=== PATIENT | female | born 1945 | race Caucasian/White ===

== ENCOUNTER 2017-03-02 02:19 | Inpatient (IN) ==
[2017-02-25 09:50] LABS: MANUAL DIFF NEEDED? NO; URINE MICRO REVIEW NEEDED? NO; URINE SOURCE CLEAN CATCH
[2017-02-25 09:58] LABS: BILIRUBIN URINE NEGATIVE (NEGATIVE); BLOOD URINE NEGATIVE (NEGATIVE); COLOR YELLOW; GLUCOSE URINE NEGATIVE (NEGATIVE); LEUKOCYTES URINE LARGE (NEGATIVE); NITRITE URINE NEGATIVE (NEGATIVE); PROTEIN URINE NEGATIVE (NEGATIVE); SP GRAVITY URINE 1.007; TURBIDITY URINE CLEAR (CLEAR); UROBILINOGEN URINE NORMAL (NORMAL)
[2017-02-25 09:59] LABS: BASO% 0.3 % (0.0-0.8); EOS# 0.07 X1000 (0.0-0.7); HEMATOCRIT 37.2 % (37.0-47.0); HEMOGLOBIN 12.3 g/dL (12.0-16.0); IMM GRAN# 0.02 X1000 (0.0-0.04); IMM GRAN% 0.3 % (0.0-0.5); LYMPH# 2.21 X1000 (1.2-3.4); LYMPH% 31.8 % (20.5-51.1); MCH 29.3 PG (27-31); MCHC 33.1 g/dL (33-37); MCV 88.6 FL (81-99); MONO# 0.43 X1000 (0.11-0.59); MONO% 6.2 % (1.7-9.3); MPV 9.9 FL (7.4-10.4); NEUT% 60.4 % (42.2-75.2); PLT 199 X1000 (130-400)
[2017-02-25 10:00] LABS: UR EPITHELIAL CELLS >10 /HPF (<10); URINE BACTERIA 1+ /HPF; URINE RBC <10 /HPF (<10)
[2017-02-25 10:10] LABS: INR 1.03; PROTIME 10.8 Seconds (9.2-11.7); PTT 28.3 Seconds (22.0-36.0)
[2017-02-25 10:23] LABS: CALCIUM 8.9 mg/dL (8.8-10.2); POTASSIUM 4.5 mmol/L (3.5-5.1)
--- NOTE | 2017-02-25 12:13 | EKG Report ---
Test Performed on : 02/25/2017 12:11:52 PM Test Reason : PAT Blood Pressure : / mmHG Vent. Rate : 070 BPM Atrial Rate : 070 BPM P-R Int : 214 ms QRS Dur : 076 ms QT Int : 412 ms P-R-T Axes : 067 063 078 degrees QTc Int : 444 ms Sinus rhythm. with 1st degree AV block. Otherwise normal ECG When compared with ECG of 16-FEB-2011 18:43, No significant change was found Confirmed by Curt Campa MD ([id number]) on 02/25/2017 4:18:41 PM
[2017-03-02] MEDS ORDERED: PEPCID ONE (09:13)
[2017-03-02] MEDS ORDERED: REGLAN ONE (09:13)
[2017-03-02] MEDS ORDERED: COLACE ONE (09:13)
[2017-03-02] MEDS ORDERED: LYRICA ONE (09:14)
[2017-03-02] MEDS ORDERED: CELEBREX ONE (09:14)
[2017-03-02] MEDS ORDERED: LR 1,000 ML ONE ×2 (09:15→14:19)
[2017-03-02] MEDS ORDERED: VANCOMYCIN 1 GM/NS 1 GM/250 ML IVPB ONE (09:45)
[2017-03-02] MEDS ORDERED: EXPAREL 1.3% ONE (11:08)
[2017-03-02] MEDS ORDERED: NEOSPORIN G.U. IRRIGANT ONE (11:08)
[2017-03-02] MEDS ORDERED: SODIUM CHLORIDE 0.9% ONE (11:08)
[2017-03-02] MEDS ORDERED: TORADOL ONE (11:08)
[2017-03-02] MEDS ORDERED: CYKLOKAPRON 1,000 MG/NS 1,000 MG/100 ML IVPB ONE ×2 (11:08→11:10)
[2017-03-02] MEDS ORDERED: VANCOMYCIN ONE (11:08)
[2017-03-02] MEDS ORDERED: BENADRYL ONE (11:34)
[2017-03-02] MEDS ORDERED: MARCAINE 0.25% PF/EPI 1:200,000 ONE (11:34)
[2017-03-02 12:53] LABS: URINE MICRO REVIEW NEEDED? NO; URINE SOURCE CATH
[2017-03-02] MEDS ORDERED: VERSED ONE (13:51)
[2017-03-02] MEDS ORDERED: DIPRIVAN 1% ONE (13:51)
[2017-03-02] MEDS ORDERED: FENTANYL ONE (13:51)
[2017-03-02 13:56] LABS: UR EPITHELIAL CELLS <10 /HPF (<10); URINE BACTERIA NEGATIVE /HPF; URINE RBC <10 /HPF (<10); URINE WBC <10 /HPF (<10)
--- NOTE | 2017-03-02 13:56 | OPERATIVE NOTE ---
PROCEDURE DATE: 03/02/2017 PREOPERATIVE DIAGNOSIS: Left knee degenerative joint disease. POSTOPERATIVE DIAGNOSIS: Left knee degenerative joint disease. PROCEDURE PERFORMED: Left total knee arthroplasty using [facility] size 4 femoral component, size 4 tibial baseplate, a 12 mm articular insert, and a 32 mm patellar component. SURGEON: Zeus Briones MD. PORTABLE GRINDING MACHINE OPERATOR: Sary Jenkins PA-C ANESTHESIA: Spinal. COMPLICATIONS: None. BLOOD LOSS: Minimal. DRAINS: Hemovac x1. DESCRIPTION OF PROCEDURE: The patient was brought to the operative suite and placed in supine position. After successful administration of spinal anesthesia, a well-padded tourniquet was placed along the left proximal thigh. The left lower extremity was prepped and draped in the usual sterile fashion. The leg was exsanguinated and tourniquet insufflated to 350 torr. A longitudinal incision was made beginning at the superior pole of the patella and extending distally to the tibial tuberosity. It was dissected sharply through the skin and subcutaneous tissue, and full-thickness skin flaps were elevated medially and laterally. A medial arthrotomy was made with a vastus snip. The medial capsule was elevated off the medial tibial plateau. The prepatellar fat pad, ACL, PCL, medial meniscus, and lateral meniscus were excised. A drill was entered in the center of distal femur. An intramedullary guide was placed. A distal cutting block was pinned into place. A distal cut was made with an oscillating saw. The femur was sized to size 4. A size 4 cutting block was pinned into place and the anterior cuts, chamfer cuts, and posterior condylar cuts were made with the oscillating saw. The box cutting block was pinned into place. A box cut was made a box osteotome and oscillating saw. Posterior condyle osteophytes were removed with a curved osteotome and a rongeur. Attention was then directed to the tibia. A drill was entered in the center of the tibia. An intramedullary guide was placed. Alignment was checked with a drop krista, referencing off the anterior cortex of the tibia and the 2nd ray of the foot, taking 4 mm off the low side of the tibia which, in this case, was medially. The articular surface of the tibial plateau was removed with the oscillating saw. The tibia was sized to a size 4. A size 4 guide was used for the fin punch. The tibial trial, femoral trial, and 12 mm articular insert were placed, taken through range of motion, and found to have excellent alignment, balancing, and range of motion. Attention was then directed to the patella and 9 mm off the articular surface of the patella was removed with the oscillating saw. The patella was sized to a size 32. A size 32 guide was used to drill peg holes. The lateral facet was chamfered 30 to 45 degrees. A patellar trial was placed, taken through range of motion, and found to have excellent patella tracking. All trials were then removed. The knee was copiously irrigated dried, being certain all bone debris was removed. The tibial component, femoral component, and patellar component were cemented into place, excess cement being removed with a [place]. Once the cement had hardened, excess cement was again removed with the osteotome. The knee was again copiously irrigated and dried, being certain all bone and cement was removed. The trial articular insert was removed. The knee was copiously infiltrated with Exparel, including the posterior capsule, anterior capsule, medial and lateral collateral ligaments, anterior musculature, and subcutaneous tissue. The definitive 12 mm articular insert was locked into place. The knee was again taken through range of motion and again found to have excellent alignment, balancing, range of motion, and patellar tracking. A drain was placed exiting superior laterally and buried in the lateral gutter. The medial arthrotomy was closed with a V-Loc suture, size 0. The skin edge was approximated with 2-0 Vicryl. The skin was closed with Prineo. A sterile dressing was applied with a cooling blanket. cc: Zeus Briones MD
[2017-03-02 14:09] LABS: BILIRUBIN URINE NEGATIVE (NEGATIVE); BLOOD URINE NEGATIVE (NEGATIVE); COLOR YELLOW; GLUCOSE URINE NEGATIVE (NEGATIVE); SP GRAVITY URINE 1.018; TURBIDITY URINE CLEAR (CLEAR)
[2017-03-02 14:10] LABS: LEUKOCYTES URINE NEGATIVE (NEGATIVE); NITRITE URINE NEGATIVE (NEGATIVE); PROTEIN URINE NEGATIVE (NEGATIVE); UROBILINOGEN URINE NORMAL (NORMAL)
[2017-03-02] MEDS ORDERED: NS 1,000 ML ONE (14:14)
[2017-03-02] MEDS ORDERED: OXY IR PO PRN (14:15)
[2017-03-02] MEDS ORDERED: MORPHINE IV PRN (14:15)
[2017-03-02] MEDS ORDERED: MILK OF MAGNESIA PO PRN (14:15)
[2017-03-02] MEDS ORDERED: AMBIEN PO PRN (14:15)
[2017-03-02] MEDS ORDERED: ZOFRAN IV PRN (14:15)
[2017-03-02] MEDS ORDERED: EPHEDRINE ONE (14:19)
[2017-03-02] MEDS ORDERED: ROBINUL ONE (14:19)
[2017-03-02] MEDS ORDERED: XYLOCAINE-MPF 2% ONE (14:19)
[2017-03-02] MEDS ORDERED: DECADRON ONE (14:19)
[2017-03-02] MEDS ORDERED: OFIRMEV 1000 MG/ISOTONIC SOLN 1,000 MG/100 ML BOTTLE ONE (14:19)
[2017-03-02] MEDS ORDERED: ZOVIRAX PO PRN (15:24)
[2017-03-02] MEDS ORDERED: TUMS PO PRN (15:24)
[2017-03-02] MEDS: TYLENOL PO SCH (15:53)
[2017-03-02] MEDS: ULTRAM PO SCH (15:54)
[2017-03-02] MEDS: NS 1,000 ML IV SCH (20:13)
[2017-03-02] MEDS: LYRICA PO SCH (20:14)
[2017-03-02] MEDS: COLACE PO SCH (20:14)
[2017-03-02] MEDS: COREG PO SCH (20:14)
[2017-03-02] MEDS: XANAX PO SCH ×2 (20:14→22:45)
[2017-03-02] MEDS: CELEBREX PO SCH (20:14)
[2017-03-02] MEDS: ZOCOR PO SCH (20:15)
[2017-03-02] MEDS: KEFZOL 1 GM/D5W 1 GM/50 ML IVPB IV SCH (20:17)
[2017-03-02] MEDS: PERIDEX MT SCH (20:19)
[2017-03-03] MEDS: TYLENOL PO SCH ×5 (03:40→21:48)
[2017-03-03] MEDS: ULTRAM PO SCH ×5 (03:41→21:48)
[2017-03-03] MEDS: NS 1,000 ML IV SCH ×4 (04:42→17:55)
[2017-03-03] MEDS: KEFZOL 1 GM/D5W 1 GM/50 ML IVPB IV SCH (04:42)
[2017-03-03] MEDS: XARELTO PO SCH ×2 (04:43→06:51)
[2017-03-03 06:06] LABS: HEMOGLOBIN 10.4 g/dL (12.0-16.0)
[2017-03-03 06:25] LABS: CALCIUM 8.2 mg/dL (8.8-10.2); POTASSIUM 4.5 mmol/L (3.5-5.1)
--- NOTE | 2017-03-03 08:39 | PROGRESS NOTE ---
DATE: 03/03/2017 SUBJECTIVE: Ms. Graves is a 71-year-old female who is postoperative day 1 from a left total knee arthroplasty. She has no new complaints. OBJECTIVE: General: She is a well developed, well nourished female. She is alert, oriented, and cooperative with the examination. Vital Signs: Stable and she is afebrile. Skin: Her dressing is clean, dry, and intact without sign of infection. Extremities: Her leg is neurovascularly intact. She has intact sensation to light touch. Laboratory Data: Her hemoglobin is 10.4 and her hematocrit is 32. She had 30 mL of drainage from her Hemovac. She walked 125 feet yesterday with physical therapy. ASSESSMENT: Postoperative day 1 from a left total knee arthroplasty. PLAN: We will continue working with her with physical therapy and we plan to send her to rehab later this week. Dictated by TORRI Correa for Zeus Briones MD cc: TORRI Correa MD
[2017-03-03] MEDS: COLACE PO SCH ×2 (08:47→21:48)
[2017-03-03] MEDS: CELEBREX PO SCH ×2 (08:47→21:48)
[2017-03-03] MEDS: XANAX PO SCH ×3 (08:47→21:49)
[2017-03-03] MEDS: FISH OIL CONCENTRATE PO SCH (08:47)
[2017-03-03] MEDS: LYRICA PO SCH ×2 (08:48→21:48)
[2017-03-03] MEDS: PERIDEX MT SCH ×2 (08:48→21:48)
[2017-03-03] MEDS: COREG PO SCH ×2 (08:48→21:48)
[2017-03-03] MEDS: PEPCID PO SCH (08:48)
[2017-03-03] MEDS ORDERED: DECADRON IV ONE (09:00)
[2017-03-03] MEDS: ZOCOR PO SCH (21:48)
[2017-03-04] MEDS: TYLENOL PO SCH ×4 (04:19→21:34)
[2017-03-04] MEDS: ULTRAM PO SCH ×3 (04:19→15:48)
[2017-03-04 06:18] LABS: HEMATOCRIT 26.9 % (37.0-47.0); HEMOGLOBIN 8.8 g/dL (12.0-16.0)
[2017-03-04] MEDS: XARELTO PO SCH (06:19)
--- NOTE | 2017-03-04 07:47 | PROGRESS NOTE ---
DATE: 03/04/2017 SUBJECTIVE: Brina Graves is a 71-year-old female who is postoperative day 2 from a left total knee arthroplasty. She complains of urinary retention this morning but otherwise is doing well. She has been having some somnolence lately and she attributes that to overmedication. OBJECTIVE: She is a well-developed, well-nourished female who is alert, oriented, and cooperative with the exam. Exam of her leg reveals the wound is well approximated. There is some mild bloody drainage. Her leg is neurovascularly intact. She has good range of motion of her knee. Her leg is stable to exam. Her hemoglobin is 8.8, her hematocrit 26.9. She walked 250 feet yesterday. ASSESSMENT: Stable postoperative day 2 visit from a left total knee. PLAN: Continue working on physical therapy. I am going to discontinue her Lyrica. In and out catheter as needed. She will probably go to rehab tomorrow. cc: Zeus Briones MD
[2017-03-04] MEDS: FISH OIL CONCENTRATE PO SCH (08:46)
[2017-03-04] MEDS: COLACE PO SCH ×2 (08:46→21:34)
[2017-03-04] MEDS: PEPCID PO SCH (08:46)
[2017-03-04] MEDS: CELEBREX PO SCH (08:46)
[2017-03-04] MEDS: XANAX PO SCH ×3 (08:46→21:35)
[2017-03-04] MEDS: COREG PO SCH ×2 (08:47→21:36)
[2017-03-04] MEDS: PERIDEX MT SCH ×2 (08:47→21:34)
--- NOTE | 2017-03-04 11:36 | Diag Imaging Result Doc PS360 ---
CHEST-PORTABLE - 03/04/2017 INDICATION: rehab placement TECHNIQUE: COMPARISON: 12/02/2016 FINDINGS: Lung volumes are low with right hemidiaphragm elevation and some adjacent atelectasis. There are probably no significant infiltrates. Heart size is top normal. No pneumothorax or pleural effusion. IMPRESSION: No specific acute abnormality. Electronically signed by Fausto Arce 03/04/2017 11:34 AM
[2017-03-04] MEDS ORDERED: LACTULOSE PO PRN (19:28)
[2017-03-04] MEDS: ZOCOR PO SCH (21:34)
[2017-03-05] MEDS: ULTRAM PO SCH ×4 (00:46→11:07)
[2017-03-05] MEDS: TYLENOL PO SCH ×3 (04:57→11:06)
[2017-03-05] MEDS: XARELTO PO SCH (05:15)
[2017-03-05 06:23] LABS: HEMATOCRIT 25.7 % (37.0-47.0); HEMOGLOBIN 8.7 g/dL (12.0-16.0)
[2017-03-05] MEDS ORDERED: BENZOIN TINCTURE TOP ONE (07:16)
--- NOTE | 2017-03-05 07:50 | DISCHARGE SUMMARY ---
ADMISSION DATE: 03/02/2017 DISCHARGE DATE: DISCHARGE DIAGNOSIS: Left knee degenerative joint disease status post left total knee arthroplasty. DISCHARGE MEDICATIONS: See discharge medication list. DISPOSITION: The patient is discharged to rehab. DISCHARGE INSTRUCTIONS: Instructions for total knee arthroplasty protocol. Instructed to return to see Dr. Briones next . HOSPITAL COURSE: On the day of admission, patient underwent a left total knee arthroplasty. Her postoperative course was unremarkable. At discharge, she is afebrile tolerating a regular diet, ambulating well with physical therapy. Yesterday she walked 250 feet. Her hemoglobin is 8.7. Her hematocrit is 25.7. Her wound is clean, dry, and intact without signs of infection. She is discharged to rehab in stable condition with instructions to follow up as described above. Dictated by TORRI Correa for Zeus Briones MD cc: TORRI Correa MD
[2017-03-05] MEDS: PERIDEX MT SCH (08:46)
[2017-03-05] MEDS: COREG PO SCH (08:47)
[2017-03-05] MEDS: XANAX PO SCH (08:47)
[2017-03-05] MEDS: CELEBREX PO SCH (08:48)
[2017-03-05] MEDS: PEPCID PO SCH (08:48)
[2017-03-05] MEDS: FISH OIL CONCENTRATE PO SCH (08:48)
[2017-03-05] MEDS: COLACE PO SCH (08:48)
[2017-03-05 12:36] VITALS: BP 138/58
== END 2017-03-05 12:45 ==
LOC: SURHOLD 02:19 → 4N 11:52
PROVIDERS: ADMIT Orthopaedic Surgery; ATTEND Orthopaedic Surgery